=== PATIENT | female | born 1950 | race Caucasian/White ===

== ENCOUNTER 2017-04-07 15:13 | Outpatient (CLI) | payer OTHER ==
--- NOTE | 2017-04-08 18:45 | Mammography Report ---
DIGITAL UNILATERAL LEFT SCREENING MAMMOGRAM: 04/07/2017 COMPARISON STUDY: Mammogram 03/31/2014. TECHNIQUE: Unilateral left MLO and CC breast views. FINDINGS: The breast parenchyma is heterogeneously dense which may limit the sensitivity of mammogra phy. In the left central breast at anterior to mid depth is a well circumscribed focal asymmetry. It is i ncreased in size, previously 1.3 cm, now 2.0 cm. No other dominant mass is demonstrated. No architectural distortion or concerning cluster of microcalcifications. IMPRESSION: 1. BIRADS CATEGORY: 0, INCOMPLETE. ADDITIONAL IMAGING IS REQUIRED. 2. RECOMMEND SPOT COMPRESSION VIEWS OF THE LEFT BREAST FOCAL ASYMMETRY, AND POSSIBLE LEFT BREAST ULT RASOUND INDICATED AT THAT TIME. STANDARD QUALIFYING STATEMENTS 1. This examination was reviewed with the aid of Computed-Aided Detection (CAD). 2. A negative or benign imaging report should not delay biopsy if clinically suspicious findings are present. Consider surgical consultation if warranted. More than 5% of cancers are not identified b y imaging. 3. Dense breasts may obscure an underlying neoplasm. JOB #: [id number] EXT JOB #:[id number]
== END 2017-04-07 15:14 | disposition home or self-care (01) ==
LOC: DI.N 15:13
PROVIDERS: ATTEND Internal Medicine
DX: Z12.31 Encounter for screening mammogram for malignant neoplasm of breast (principal); R92.8 Other abnormal and inconclusive findings on diagnostic imaging of breast

== ENCOUNTER 2017-05-01 13:53 | Outpatient (CLI) | payer OTHER ==
--- NOTE | 2017-05-01 18:16 | Ultrasound Report ---
ULTRASOUND LEFT BREAST: 05/01/2017 CLINICAL INDICATION: Nodule. TECHNIQUE: Real-time scanning was performed with medical sales representative static images obtained. Ultrasound of the left breast was performed. At the 3:30 position, 3 cm from the nipple, there is a 1.6 x 1.4 x 0.9 cm simple cyst. No sonographically suspicious findings are identified. IMPRESSION: SIMPLE CYST ACCOUNTING FOR THE MAMMOGRAPHIC ABNORMALITY. RECOMMENDATION: ROUTINE ANNUAL SCREENING UNLESS OTHERWISE CLINICALLY INDICATED. BIRADS CATEGORY: 2, BENIGN FINDINGS. JOB #: [id number] EXT JOB #:[id number]
--- NOTE | 2017-05-01 18:24 | Mammography Report ---
DIGITAL DIAGNOSTIC LEFT MAMMOGRAM: 05/01/2017 CLINICAL INDICATION: Nodule left breast. TECHNIQUE: Left true lateral and spot compression views. COMPARISON: 04/07/2017, 03/31/2014, 11/20/2012, 10/16/2012, 08/20/2010, 08/11/2009. The left breast again demonstrates heterogeneously dense fibroglandular parenchyma. The nodule in th e left outer anterior breast persists, measuring approximately 1.8 cm. The margins are circumscribed . Coarse and punctate, typically benign calcifications are stable. Please also refer to left breast ultrasound of the same day. IMPRESSION: BENIGN FINDINGS, WITH A SIMPLE CYST ON ULTRASOUND ACCOUNTING FOR THE MAMMOGRAPHIC ABNORM ALITY. RECOMMENDATION: ROUTINE ANNUAL SCREENING UNLESS OTHERWISE CLINICALLY INDICATED. BIRADS CATEGORY: 2, BENIGN FINDINGS. STANDARD QUALIFYING STATEMENTS 1. This examination was reviewed with the aid of Computed-Aided Detection (CAD). 2. A negative or benign imaging report should not delay biopsy if clinically suspicious findings are present. Consider surgical consultation if warranted. More than 5% of cancers are not identified b y imaging. 3. Dense breasts may obscure an underlying neoplasm. JOB #: [id number] EXT JOB #:[id number]
== END 2017-05-01 13:54 | disposition home or self-care (01) ==
LOC: DI 13:53
PROVIDERS: ATTEND Internal Medicine
DX: N60.02 Solitary cyst of left breast (principal)
CPT/HCPCS: 76642

== ENCOUNTER 2017-07-31 15:09 | Outpatient (CLI) | payer OTHER ==
--- NOTE | 2017-08-01 10:21 | DEXA Report ---
DEXA SCAN: 07/31/2017 CLINICAL INDICATION: Osteoporosis. TECHNIQUE: Dual energy x-ray absorptiometry (DXA) was performed on a [employer] system. Regions measured are the AP spine, femoral neck, and, if needed, forearm. COMPARISON: None. In accordance with the International Society for Clinical Densitometry (ISCD) guidelines, data from previous exams may be reanalyzed using current recommendations and techniques. This is done to allow a more accurate basis for comparison with the current study. FINDINGS The data for the lumbar spine is as follows: REGION BMD (g/cm/cm) T-SCORE Z-SCORE L1 0.937 -1.6 -0.7 L2 0.953 -2.1 -1.1 L3 1.032 -1.4 -0.5 L4 1.061 -1.2 -0.2 TOTAL 1.000 -1.5 -0.5 NOTE: All evaluable vertebrae are used for classification. The data for the hip is as follows: REGION BMD (g/cm/cm) T-SCORE Z-SCORE Neck 1.032 0.0 1.0 TOTAL 1.099 0.7 1.5 NOTE: The femoral neck or total proximal femur, whichever is lowest, is used for classification. IMPRESSION THE WHO CLASSIFICATION BASED ON THE INTERNATIONAL REFERENCE STANDARD IS OSTEOPENIA. THE FRACTURE RISK IS INCREASED. RECOMMENDATION: Patients with diagnosis of osteoporosis or osteopenia should have regular bone mineral density assessment. For those eligible for Medicare, routine testing is allowed once every 2 years. Testing frequency can be increased for patients who have rapidly progressing disease or for those who are receiving medical therapy to restore bone mass. COMMENT: World Health Organization (WHO) definitions for osteoporosis and osteopenia: NORMAL BMD: T-score at 1.0 or higher, fracture risk is low. OSTEOPENIA BMD: T-score between 1.0 and -2.5, fracture risk is increased. OSTEOPOROSIS BMD: T-score at 2.5 or lower, fracture risk high. National Osteoporosis Foundation recommends: 1. Obtain adequate dietary calcium (at least 1200 mg per day) and vitamin D (400 -800 international units per day). 2. Participate, as appropriate, in regular weightbearing and muscle- strengthening exercise. 3. Avoid tobacco use and reduce alcohol and caffeine intake. 4. For more detailed information see the website at www.NOF.org. TD: 08/01/2017 09:58 MTDD
== END 2017-07-31 15:10 | disposition home or self-care (01) ==
LOC: DI 15:09
PROVIDERS: ATTEND Internal Medicine
DX: M85.88 Other specified disorders of bone density and structure, other site (principal)
CPT/HCPCS: 77080